=== PATIENT | male | born 1985 | race Caucasian/White ===

== ENCOUNTER 2017-03-20 13:51 | Emergency (ER) | payer OTHER ==
[~2017-03-20] VITALS: Ht 167.6 cm; Wt 85.4 kg
[2017-03-20 14:42] LABS: ADD MIUA? NO; BILIRUBIN NEGATIVE; BLOOD NEGATIVE; COLOR YELLOW ((YELLOW)); GLUCOSE (STRIP) NEGATIVE; KETONES 20; LEUKOCYTES NEGATIVE; NITRITE NEGATIVE; PROTEIN (STRIP) 30; SPECIFIC GRAVITY 1.027 (1.000-1.030); UCUL ADDED? NO; UROBILINOGEN 0.2 MG/DL (0.2-1.0)
[2017-03-20 16:16] LABS: EOSINOPHIL (%) 1.1 % (0-5); EOSINOPHIL COUNT 0.1 K/uL (0-0.3); HEMATOCRIT 38.8 % (38.0-50.0); IMMATURE GRANULOCYTE (%) 0.4 % (0.0-0.7); INSTRUMENT ABS NEUTROPHIL CT 6.1 K/uL; LYMPHOCYTE COUNT 1.7 K/uL (1.0-2.8); MCH 33.3 PG (29.0-34.0); MCHC 35.6 G/DL (30.0-36.0); MCV 93.5 FL (86-99); MEAN PLAT.VOLUME 9.6 uM^3 (9.0-12.4); MONOCYTE (%) 6.1 % (3-12); MONOCYTE COUNT 0.5 K/uL (0-0.8); NEUTROPHIL (%) 72.1 % (45-76); NEUTROPHIL COUNT 6.1 K/uL (1.8-6.4); PLATELET COUNT 290 K/uL (156-360); RBC DIS.WIDTH-CV 11.4 % (11.8-14.6); RBC DIS.WIDTH-SD 39.3 % (39-53); RED BLOOD COUNT 4.15 M/uL (4.00-5.50); WHITE BLOOD COUNT 8.5 K/uL (4.1-10.2)
[2017-03-20 16:27] LABS: CHLORIDE 105 mEq/L (99-109); POTASSIUM 4.2 mEq/L (3.7-5.4); SODIUM 142 mEq/L (136-147)
[2017-03-20 16:28] LABS: GLUCOSE 92 mg/dL (70-99)
[2017-03-20 16:30] LABS: ANION GAP 13 MEQ/L (2-14)
[2017-03-20 16:32] LABS: GFR ESTIMATE (CALCULATED) > 59 mL/min/
[2017-03-20 16:33] LABS: UREA NITROGEN (BUN) 10 mg/dL (9-23)
[2017-03-20 17:40] VITALS: BP 142/91
== END 2017-03-20 18:00 | disposition home or self-care (01) ==
LOC: EME 13:51
PROVIDERS: Emergency Medicine
DX: S30.853A Superficial foreign body of scrotum and testes, initial encounter (principal); W45.8XXA Other foreign body or object entering through skin, initial encounter; W34.010A Accidental discharge of airgun, initial encounter
CPT/HCPCS: 76870; 80048; 81003; 85025; 99281; 99284

== ENCOUNTER 2017-04-02 13:40 | Emergency (ER) | payer OTHER ==
[~2017-04-02] VITALS: Ht 167.6 cm; Wt 86.8 kg
[2017-04-02] MEDS ORDERED: KEFLEX500 MG PO (14:43)
[2017-04-02 17:31] VITALS: BP 128/63
== END 2017-04-02 17:32 | disposition home or self-care (01) ==
LOC: EME 13:40
DX: S61.421A Laceration with foreign body of right hand, initial encounter (principal); S66.122A Laceration of flexor muscle, fascia and tendon of right middle finger at wrist and hand level, initial encounter; Z23 Encounter for immunization; Y99.0 Civilian activity done for income or pay; W25.XXXA Contact with sharp glass, initial encounter; Z89.422 Acquired absence of other left toe(s); Z87.891 Personal history of nicotine dependence
CPT/HCPCS: 73130; 99281; 99284